=== PATIENT | female | born 1980 | race Two or more races ===

== ENCOUNTER 2024-10-20 04:55 | Emergency (ER) | payer OTHER ==
[~2024-10-20] VITALS: Ht 160 cm; Wt 72.1 kg
== END 2024-10-20 10:58 | disposition home or self-care (01) ==
LOC: ER 04:58
DX: S00.33XA Contusion of nose, initial encounter (principal); S00.31XA Abrasion of nose, initial encounter; X58.XXXA Exposure to other specified factors, initial encounter; Y93.89 Activity, other specified; Y92.69 Other specified industrial and construction area as the place of occurrence of the external cause; Y99.8 Other external cause status; J34.89 Other specified disorders of nose and nasal sinuses; Z88.6 Allergy status to analgesic agent